=== PATIENT | male | born 2005 | race Hispanic/Latino ===

== ENCOUNTER 2025-09-12 14:41 | Emergency (ER) | payer OTHER ==
[~2025-09-12] VITALS: Ht 175.3 cm; Wt 79.9 kg
[2025-09-12 15:16] LABS: BASO # 0.1 10^3/uL (0.0-0.2); BASO % 0.7 % (0.0-1.0); EOS # 0.3 10^3/uL (0.0-0.5); EOS % 4.0 % (0.0-3.0); LYMPH # 3.5 10^3/uL (1.5-5.0); LYMPH % 52.6 % (24.0-44.0); MONO # 0.6 10^3/uL (0.0-0.8); MONO % 9.3 % (2.0-8.0); NEUTROPHILS # 2.2 10^3/uL (1.5-8.5); NEUTROPHILS % 33.3 % (36.0-66.0); PLATELET COUNT, AUTOMATED 305 10^3/uL (150-450)
[2025-09-12 15:30] VITALS: BP 134/73
[2025-09-12 15:47] LABS: ALT/SGPT 49 U/L (7.0-40); AST/SGOT 39 U/L (<34); CALCIUM LEVEL 8.7 MG/DL (8.5-10.1); CARBON DIOXIDE LEVEL 27 MMOL/L (20-31); CHLORIDE LEVEL 104 MMOL/L (98-107); CK-MB VALUE MASS < 1.0 NG/ML (<3.6); CREATININE FOR GFR 1.02 MG/DL (0.70-1.30); GLOMERULAR FILTRATION RATE > 90.0 (>60); MAGNESIUM LEVEL 1.9 MG/DL (1.8-2.4); POTASSIUM SERUM 3.8 MMOL/L (3.5-5.1); SODIUM LEVEL 141 MMOL/L (136-145)
[2025-09-12 15:49] LABS: FREE T4 1.23 NG/DL (0.89-1.76)
[2025-09-12 15:51] LABS: CPK CREATINE PHOSPHOKINASE 96 U/L (46-171)
[2025-09-12 16:45] VITALS: O2SAT 99
[2025-09-12 17:06] VITALS: TEMP 97
== END 2025-09-12 17:14 | disposition home or self-care (01) ==
LOC: M ED 17:02
DX: R55 Syncope and collapse (principal); R22.0 Localized swelling, mass and lump, head